=== PATIENT | male | born 1930 | race Two or more races ===

== ENCOUNTER 2018-05-07 13:01 | Outpatient (CLI) | payer MEDICARE | END 2018-05-07 23:59 | disposition home health service (06) | LOC: WOU 13:01 | PROVIDERS: ATTEND Podiatrist Foot & Ankle Surgery | DX: I87.313 Chronic venous hypertension (idiopathic) with ulcer of bilateral lower extremity (principal); L97.822 Non-pressure chronic ulcer of other part of left lower leg with fat layer exposed; L97.812 Non-pressure chronic ulcer of other part of right lower leg with fat layer exposed; Z79.01 Long term (current) use of anticoagulants; Z79.899 Other long term (current) drug therapy; I48.91 Unspecified atrial fibrillation; M72.6 Necrotizing fasciitis; Z90.49 Acquired absence of other specified parts of digestive tract | CPT/HCPCS: 11042; 11045; A6402 ×3; A6452; Z7610 ==

== ENCOUNTER 2018-05-17 13:15 | Outpatient (CLI) | payer MEDICARE | END 2018-05-17 23:59 | disposition home health service (06) | LOC: WOU 13:15 | PROVIDERS: ATTEND Podiatrist Foot & Ankle Surgery | DX: I87.311 Chronic venous hypertension (idiopathic) with ulcer of right lower extremity (principal); L97.812 Non-pressure chronic ulcer of other part of right lower leg with fat layer exposed; I73.9 Peripheral vascular disease, unspecified; M72.6 Necrotizing fasciitis; E11.9 Type 2 diabetes mellitus without complications; Z79.82 Long term (current) use of aspirin; Z79.01 Long term (current) use of anticoagulants; N40.0 Benign prostatic hyperplasia without lower urinary tract symptoms; I48.91 Unspecified atrial fibrillation; Z79.899 Other long term (current) drug therapy | CPT/HCPCS: 11042; 11045; A6402 ×2; A6452; J7040; Z7610 ==

== ENCOUNTER 2018-05-21 14:29 | Outpatient (CLI) | payer MEDICARE | END 2018-05-21 23:59 | disposition home health service (06) | LOC: WOU 14:29 | PROVIDERS: ATTEND Podiatrist Foot & Ankle Surgery | DX: I87.311 Chronic venous hypertension (idiopathic) with ulcer of right lower extremity (principal); L97.812 Non-pressure chronic ulcer of other part of right lower leg with fat layer exposed; M72.6 Necrotizing fasciitis; R60.0 Localized edema; I73.9 Peripheral vascular disease, unspecified; E11.9 Type 2 diabetes mellitus without complications; I48.91 Unspecified atrial fibrillation; Z79.01 Long term (current) use of anticoagulants; Z79.82 Long term (current) use of aspirin | CPT/HCPCS: 11042; 11045; A6402; A6452; Z7610 ==

== ENCOUNTER 2018-05-28 13:10 | Outpatient (CLI) | payer MEDICARE | END 2018-05-28 23:59 | disposition home health service (06) | LOC: WOU 13:10 | PROVIDERS: ATTEND Podiatrist Foot & Ankle Surgery | DX: I87.311 Chronic venous hypertension (idiopathic) with ulcer of right lower extremity (principal); L97.812 Non-pressure chronic ulcer of other part of right lower leg with fat layer exposed; M72.6 Necrotizing fasciitis; R60.0 Localized edema; I73.9 Peripheral vascular disease, unspecified; E11.9 Type 2 diabetes mellitus without complications; I48.91 Unspecified atrial fibrillation; Z79.01 Long term (current) use of anticoagulants; Z79.82 Long term (current) use of aspirin | CPT/HCPCS: 11042; 11045; A6402; A6452; Z7610 ==

== ENCOUNTER 2018-06-04 12:55 | Outpatient (CLI) | payer MEDICARE | END 2018-06-04 23:59 | disposition home health service (06) | LOC: WOU 12:55 | PROVIDERS: ATTEND Podiatrist Foot & Ankle Surgery | DX: I87.311 Chronic venous hypertension (idiopathic) with ulcer of right lower extremity (principal); L97.812 Non-pressure chronic ulcer of other part of right lower leg with fat layer exposed; M72.6 Necrotizing fasciitis; R60.0 Localized edema; I73.9 Peripheral vascular disease, unspecified; E11.9 Type 2 diabetes mellitus without complications; I48.91 Unspecified atrial fibrillation; Z79.02 Long term (current) use of antithrombotics/antiplatelets; Z79.82 Long term (current) use of aspirin | CPT/HCPCS: 11042; 11045; A6402; A6452; Z7610 ==

== ENCOUNTER 2018-06-11 12:45 | Outpatient (CLI) | payer MEDICARE | END 2018-06-11 23:59 | disposition home health service (06) | LOC: WOU 12:45 | PROVIDERS: ATTEND Podiatrist Foot & Ankle Surgery | DX: I87.311 Chronic venous hypertension (idiopathic) with ulcer of right lower extremity (principal); L97.812 Non-pressure chronic ulcer of other part of right lower leg with fat layer exposed; M72.6 Necrotizing fasciitis; R60.0 Localized edema; I73.9 Peripheral vascular disease, unspecified; E11.9 Type 2 diabetes mellitus without complications; I48.91 Unspecified atrial fibrillation; Z79.02 Long term (current) use of antithrombotics/antiplatelets; Z79.82 Long term (current) use of aspirin | CPT/HCPCS: 11042; 11045; A6402; A6452; Z7610 ==

== ENCOUNTER 2018-06-14 12:45 | Outpatient (CLI) | payer MEDICARE | END 2018-06-14 23:59 | disposition home health service (06) | LOC: WOU 12:45 | PROVIDERS: ATTEND Podiatrist Foot & Ankle Surgery | DX: I87.311 Chronic venous hypertension (idiopathic) with ulcer of right lower extremity (principal); L97.912 Non-pressure chronic ulcer of unspecified part of right lower leg with fat layer exposed; R60.0 Localized edema; E11.51 Type 2 diabetes mellitus with diabetic peripheral angiopathy without gangrene; M72.6 Necrotizing fasciitis; Z79.899 Other long term (current) drug therapy; Z79.82 Long term (current) use of aspirin | CPT/HCPCS: 11042; 11045; A6402; A6452; Z7610 ==

== ENCOUNTER 2018-06-21 12:50 | Outpatient (CLI) | payer MEDICARE | END 2018-06-21 23:59 | disposition home health service (06) | LOC: WOU 12:50 | PROVIDERS: ATTEND Podiatrist Foot & Ankle Surgery | DX: I87.311 Chronic venous hypertension (idiopathic) with ulcer of right lower extremity (principal); L97.812 Non-pressure chronic ulcer of other part of right lower leg with fat layer exposed; M72.6 Necrotizing fasciitis; E11.51 Type 2 diabetes mellitus with diabetic peripheral angiopathy without gangrene; I48.91 Unspecified atrial fibrillation; Z79.01 Long term (current) use of anticoagulants; Z79.899 Other long term (current) drug therapy; Z79.82 Long term (current) use of aspirin | CPT/HCPCS: 11042; 11045; A6402; A6452; Z7610 ==

== ENCOUNTER 2018-06-28 12:33 | Outpatient (CLI) | payer MEDICARE | END 2018-06-28 23:59 | disposition home health service (06) | LOC: WOU 12:33 | PROVIDERS: ATTEND Podiatrist Foot & Ankle Surgery | DX: I87.311 Chronic venous hypertension (idiopathic) with ulcer of right lower extremity (principal); L97.812 Non-pressure chronic ulcer of other part of right lower leg with fat layer exposed; E11.51 Type 2 diabetes mellitus with diabetic peripheral angiopathy without gangrene; I48.91 Unspecified atrial fibrillation; Z79.01 Long term (current) use of anticoagulants; Z79.82 Long term (current) use of aspirin | CPT/HCPCS: 11042; 11045; A6402; A6452; Z7610 ==